=== PATIENT | male | born 1990 | race African-American/Black ===

== ENCOUNTER 2019-01-28 11:40 | Emergency (ER) | payer SELFPAY ==
[~2019-01-28] VITALS: Ht 167.6 cm; Wt 68.6 kg
[2019-01-28 11:53] VITALS: TEMP 98.7
[2019-01-28] MEDS ORDERED: ZOFRAN ODT4 MG PO (13:34)
[2019-01-28] MEDS ORDERED: TAMIFLU 75MG75 MG PO (13:34)
[2019-01-28 13:57] VITALS: BP 129/78; PULSE 86
== END 2019-01-28 13:57 | disposition home or self-care (01) ==
LOC: COL.ER 11:40
DX: J10.1 Influenza due to other identified influenza virus with other respiratory manifestations (principal); F17.210 Nicotine dependence, cigarettes, uncomplicated